=== PATIENT | female | born 1985 | race Caucasian/White ===

== ENCOUNTER → 2018-07-24 09:14 | Outpatient (CLI) | payer OTHER, SELFPAY ==
[2018-07-24 10:19] LABS: Estradiol 67.3 pg/mL; Free T3 2.9 pg/mL (2.18-3.98); Progesterone Level 23.63 ng/mL (See Comment); T4 Free Direct 0.96 ng/dL (0.76-1.46); Thyroid Stim Hormone (TSH) 0.82 uIU/mL (0.358-3.74)
[2018-07-25 11:34] LABS: DHEA Sulfate 254.7 ug/dL (84.8-378.0)
== END ==
PROVIDERS: Family Provider Physician Assistant; PCP Physician Assistant; Referring Provider Specialist; Visit Provider Specialist
DX: E03.8 Other specified hypothyroidism (principal); E28.8 Other ovarian dysfunction
CPT/HCPCS: 36415; 82627; 82670; 84144; 84403; 84439; 84443; 84481; 82626

== ENCOUNTER → 2018-12-07 13:58 | Outpatient (CLI) | payer OTHER, SELFPAY ==
[2018-12-07 15:09] LABS: Progesterone Level 9.22 ng/mL (See Comment)
[2018-12-07 15:13] LABS: Estradiol 171.1 pg/mL; Free T3 2.7 pg/mL (2.18-3.98); T4 Free Direct 1.06 ng/dL (0.76-1.46)
[2018-12-10 11:09] LABS: DHEA Sulfate 240.4 ug/dL (84.8-378.0)
== END ==
PROVIDERS: Family Provider Physician Assistant; PCP Physician Assistant; Referring Provider Specialist; Visit Provider Specialist
DX: E27.9 Disorder of adrenal gland, unspecified (principal); E28.8 Other ovarian dysfunction; E03.8 Other specified hypothyroidism
CPT/HCPCS: 36415; 82627; 82670; 84144; 84403; 84439; 84481; 82626

== ENCOUNTER 2022-11-07 12:00 | Outpatient (RCR) | payer SELFPAY ==
--- NOTE | 2022-10-31 14:02 | HP.PTEVAL_ITS ---
Patient's Visit Information JUAQUIN MCKENZIE is a 37 year old F referred to Physical Therapy by Self Referred with a diagnosis of none...present for vertigo. Date of Evaluation: 10/31/22 Physical Therapist: Lamonte Melendez, KENDY, OCS, CSCS - Visit Plan Frequency: 1x/Week Duration: 4-6 Weeks Plan: weekly as needed to progress vestibular adaptation ex as needed. Monitor positional. refer to doctor if improvements not made. - Subjective Dizzyness. Has had issues over the years. gets dizzy spells maybe once a year for a day. This time it it started two weeks ago on morning and was spinning. Had to stay in bed as things were going around. Head is spinning. Worse that day with moving around. Since then it has gotten some better. Now looking up to hang laundry she might spin, vaccuming the floor may make her spin. Doing ex for discs in back (pressups, situps etc). rolling in bed can cause it for a couple minutes. ...might feel it the whole day being off if it is bad. Yesterday barely noticed it as she did not move much. It keeps her from comfortably and efficiently cleaning and she feels worse. Talked with PT about it. Smita Goff is PCP, in [place] at [facility]. - Objective Walks normal, transfers I and normal. Steps reciprocal without rail. Cervical aROM is full and painfree. UE AROM WFL, reflexes 2/3 bi and tri. - B hallpike sara testing, - roll test, no nyhstagmus or symptoms. Oculomotor: - skew eye deviation and - ocular tilt, slight + L head thrust. no nystagmus with gaze or head shake. Pursuit and saccades are normal. dizzy with head shake but no nystagmus. VOR is symptomatic H 30 sec 3/10 for 15 seconds, V not bad. - Balance/Special Test Scores Functional Gait Assessment Score: 30 % Disability: 0 Dizziness Score: 32 - Goals Goal 1:: abolish vertigo 100% Goal Time Frame: 2-4 Weeks Goal 2:: 4 or less DHI score Goal Time Frame: 2-4 Weeks - Rehabilitation Potential Physical Therapy Diagnosis: Likely unilateral vestibular hypofunction Rehabilitation Potential: Fair - Anticipated Interventions Patient/Client Instruction: Educate patient on: Condition, Plan of Care For the Purpose of:: To increase tolerance to activity/condition/position Comment: adaptation and habituation ex For the Purpose of:: To increase tolerance to activity/condition/position Thank you for the opportunity to evaluate your patient. For Medicare and Medicare HMO plans, please review the plan of care and approve it. It will need to be FAXED BACK to us at [phone] for Medicare purposes. For Medicare only, by signing this I certify the plan of care. Please let me know if there are questions or concerns regarding this plan of care. Physician Signature: Date:
--- NOTE | 2022-11-07 12:24 | HP.PTDCSUM ---
It has been my pleasure to treat JUAQUIN MCKENZIE referred by Self Referred, with the diagnosis of none...present for vertigo for a total of 2 visit(s). Discharge Date: 11/07/22 Please see the following information for a summary of their discharge status. Subjective: Exercising working well. I can vaccuum now without much problem and doing laundry without much problem. Life is pretty normal. Very little dizzyness with ex. Balance still good . % Improvement: 80 Objective/Function: 2/10 dizzyness with 60 second , much better, VOR x 2 30 worse at 3/10 for longer, VOR walking 3/10 longer. VORV walking 2/10 for 10 seconds. Good balance and - positional today. Goal 1:: abolish vertigo 100% Goal Progress: Goal Met Goal 2:: 4 or less DHI score Goal Progress: Progressing Plan: d/c, pt to do HEP and expect continued improvements and to contact doctor if symptoms worsen. If there are questions or concerns regarding this patient's physical therapy, please feel free to call me at [phone]. Thank you for the referral of this patient. Sincerely, Lamonte Melendez, DPT, OCS, CSCS Balance/Gait/Functional tests - Balance/Special Test Scores Functional Gait Assessment Score: 30 % Disability: 0 Dizziness Score: 32
== END 2022-11-07 12:43 | disposition home or self-care (01) ==
LOC: PT 12:00
PROVIDERS: PCP Physician Assistant
DX: R42 Dizziness and giddiness (principal)
CPT/HCPCS: 97161; 97530

== ENCOUNTER 2023-08-19 19:18 | Emergency (ER) | payer OTHER, SELFPAY ==
[2023-08-19 19:19] VITALS: BP 123/96; PULSE 117; RESP 16; TEMP 36.4; O2SAT 100; BMI 35.4
--- NOTE | 2023-08-19 19:31 | EX.ED.UPPERE ---
HPI History of Present Illness HPI Narrative: 38-year-old female fell getting out of an [facility] buggy injuring her left wrist. Denies other injuries. Dominant. Chief Complaint: Upper Extremity Injury Informant: patient Occured/Mechanism Mechanism/Context: Yes injury and Yes blunt trauma Onset/Context/Timing Onset: Today and Hours Context: Sudden Onset Timing: Continuous Quality of Pain: Sharp and Stabbing Current Severity: Moderate Maximum Severity: Severe Associated Symptoms Associated Symptoms: Negative for Parasthesia, Weakness or Loss of Funtion Narrative Narrative: 38-year-old [facility] female past medical history of hypothyroidism. Fell getting out of the buggy and when she went to catch her so she injured her left wrist. She is right-hand dominant. No prior injury or surgery to the left wrist. Denies any other injuries. Prior similar symptoms: No Recent Illness/Hospitalization: No PFSH PFSH Medical History no medical history Home Medications Cetirizine Hcl [Zyrtec] 10 mg PO DAILY 12/21/15 [History Last Taken 12/20/15] calcium carbonate 500 mg calcium (1,250 mg) chewable tablet 500 mg PO 12/21/15 [History Last Taken 12/20/15] vits,calcium no.78-iron fumarate-folic acid 29 mg-1 mg tablet (Prenatabs FA) 1 tab PO DAILY 12/21/15 [History Last Taken 12/20/15] docusate sodium 100 mg capsule (DOK) 100 mg PO BID PRN PRN Constipation ##30 12/22/15 [Rx Last Taken Unknown] ibuprofen 600 mg tablet 600 mg PO Q8H PRN PRN Mild-Mod Pain (1-5/10) ##30 12/22/15 [Rx Last Taken Unknown] oxycodone 5 mg tablet 5 mg PO Q4H PRN PRN Mod-Severe Pain (4-10/10) #30 tabs 12/22/15 [Rx Last Taken Unknown] hydrocodone-acetaminophen 5-325mg 5mg-325mg 1 tab PO Q4H PRN PRN Pain 4 days #20 TABLETS 08/19/23 [Rx Last Taken Unknown] Allergy/AdvReac Type Severity Reaction Status Date / Time No Known Allergies Allergy Verified 08/19/23 19:19 Family History no significant family his Surgical History no surgical history Social History Smoking Status: Never smoker ROS ROS ED ROS Narrative Denies recent illness. Review of Systems ROS Unobtainable: Denies due to encephalopathy Constitutional Constitutional ED: Denies chills or fever(s) Eyes Eyes: Denies blurry vision ENT ENT ED: Denies ear pain Cardiovascular Cardiovascular: Denies chest pain Respiratory/Chest Respiratory/Chest: Denies cough or dyspnea Gastrointestinal Gastrointestinal: Denies abdominal pain Genitourinary Genitourinary ED: Denies dysuria or hematuria Musculoskeletal Musculoskeletal: Denies back pain Integumentary Denies abscess Neurologic Neurologic: Denies headache(s) Psychiatric Psychiatric: Denies anxiety Endocrine Endocrinology: Denies cold intolerance Hematologic/Lymphatic Hematologic/Lymphatic: Denies easy bleeding or easy bruising Allergic/Immunologic Allergic/Immunologic ED: Denies mouth swelling or tongue swelling EXAM Physical Exam Narrative Exam Narrative: Well-appearing 38-year-old female. Vital signs are stable afebrile. H EENT exam unremarkable atraumatic nontender. No signs of trauma to her face or scalp. No hematomas. C-spine and trachea nontender. Lungs Lear to auscultation. Heart regular rhythm rate about 1005 no murmur. Chest wall and ribs nontender. Abdomen soft nontender. Back nontender. Left wrist is deformed, tender and swollen. Left hand is neurovascular intact. Skins intact. Left elbow humerus and shoulder are nontender. Right upper both lower extremities are nontender without deformity. Neurologically she is awake and alert. No focal motor deficits. Const Vital Signs: 08/19/23 19:19 Temperature 97.5 F L Temperature Source Temporal Pulse Rate 117 H Respiratory Rate 16 Blood Pressure 123/96 H Blood Pressure Mean 105 Pulse Ox 100 Oxygen Delivery Method Room Air Positive well nourished and well developed; Negative for cachectic or contractures General Appearance ED: well developed and NAD; Negative for cachectic, contractures, cyanotic or diaphoretic Nutritional Appearance: Negative for cachectic HEENT Reports moist mucous membranes normocephalic and atraumatic; Negative for trauma or tenderness Eyes PERRL and EOMs intact bilaterally Neck full ROM and supple General: Negative for tenderness Lymph Lymphatic: Negative for other Chest Wall inspection of chest normal and palpation of chest normal Chest: Negative for other Resp normal respiratory effort and clear to auscultation bilaterally Effort and Inspection: Negative for pain with movement Auscultation: Negative for rales, rhonchi or wheezes Cardio regular rhythm, S1 normal heart sound, S2 normal heart sound and no murmurs; Negative for regular rate Rate: tachycardic; Negative for bradycardia GI non-tender, non-distended and no masses Inspection: Negative for abdominal distention Auscultation: normoactive bowel sounds Palpation: soft; Negative for tender or guarding Back/Spine no CVA tenderness General Back: Negative for CVA tenderness Cervical Spine: Negative for cervical spine tenderness Thoracic Spine / Upper Back: Negative for thoracic spinal tenderness Lumbar Spine / Lower Back: Negative for lumbar spinal tenderness Extremity normal to inspection and full ROM Extremity Narrative: Except left wrist tender, swollen, deformed. Left hand neurovascular intact. Skin intact. Neuro oriented x3, CN's II-XII intact bilaterally, moves all extremities, no focal motor deficits and no sensory deficits noted Sensorium / Orientation: alert, oriented to person, oriented to place and oriented to time; Negative for orientation impaired, lethargic or stuporous Motor Exam: strength 5/5 throughout Psych mental status grossly normal Attitude: No agitated Mood & Affect: Negative for depressed, anxious or tearful Skin General Skin Exam: Negative for petechiae Lesions: no lesions Rashes: no rashes Trauma: no lacerations or abrasions; Negative for abrasion or laceration MDM MDM MDM Narrative Medical decision making narrative: 38-year-old female fell getting out of a buggy suspected left wrist fracture. X-ray being obtained. Treated with IV morphine and Zofran. Received fentanyl prior to arrival by the squad. Post procedural sedation and reduction the x-ray is much improved with much better alignment of the comminuted distal radius fracture. Patient is an AP splint. She will be placed in a sling. She will be discharged home to be given a note dose of morphine and [place] for home. Follow-up with orthopedics on Monday. History & Record Review Discussion w/independent historian: Patient and Family Radiography Diagnostic Testing: Left wrist x-ray, 3 views, interpreted by myself shows comminuted interarticular fracture of the distal radius and a ulnar styloid fracture. Left wrist x-ray, 2 views, postreduction shows significant improvement of the alignment. X-rays were discussed with the patient. Interpreted by myself. Patient is aware that after orthopedic evaluation she may need surgical repair. Procedures Upper Extremity Splints Upper Extremity Splint: Orthoglass, Sling and - (Wrist closed fracture. Postreduction. Short arm AP splint. Ortho-Glass. Well-padded.) Splint Fabrication: Fabricated Location: Left Procedural Sedation 15 min: Consent Signed: Yes Any Problems With Anesthesia: No You/Your family experience fever (hyperthermia) w/anesthesia: Yes Relationship: cousin Sedation medication: Propofol Dose: 140 Route: IV Total Moderate Sedation Units: 15 Maliampati Score: Class II ASA Classification: I Comment:: left wrist closed fracture. Procedural sedation. Patient had a family member with reaction anesthesia but it was not the propofol. Reduced. Placed a short arm well-padded AP Ortho-Glass splint. Patient tolerated procedure well. Vital signs stable stable the entire time. Discharge Plan Triage Chief Complaint: Upper Extremity Injury ED Provider: Elio Roach Dx/Rx/DC Orders Clinical Impression: Left wrist fracture, Fall Instructions: ED Fracture, Wrist, General Prescriptions: New hydrocodone-acetaminophen 5-325 mg tablet 1 tab PO Q4H PRN PRN (Reason: Pain) 4 Days Qty: 20 0RF No Action calcium carbonate 500 MG tablet,chewable 500 mg PO [id number] [Prenatabs FA] 1 TABLET tablet 1 tab PO DAILY Cetirizine Hcl [Zyrtec] 10 MG tablet 10 mg PO DAILY oxycodone 5 MG tablet 5 mg PO Q4H PRN PRN (Reason: Mod-Severe Pain (4-10/10)) Qty: 30 0RF ibuprofen 600 MG tablet 600 mg PO Q8H PRN PRN (Reason: Mild-Mod Pain (1-5/10)) Qty: 30 0RF docusate sodium [DOK] 100 MG capsule 100 mg PO BID PRN PRN (Reason: Constipation) Qty: 30 0RF Primary Care Provider: Smita Goff Referrals: Kurtis Horton DO [Med Staff - Active Staff] - As soon as possible Smita Goff PA [Primary Care Provider] - Activity Restrictions/Additional Instructions: Keep splint dry and clean. Ice and elevate the next 2 days. This will decrease pain and swelling. [place] for pain. You may also take ibuprofen or Motrin with a decrease pain and swelling. Call the orthopedic doctors office on Monday. That is Dr. Kurtis Nguyen. They will get an appointment to be seen early this week. The fracture of your left wrist may need surgical repair. Disposition Disposition: Home, Self Care
[2023-08-19] MEDS: Ondansetron 4 MG/2 ML Vial IV (19:37)
[2023-08-19] MEDS: morphine 8 MG/ML Syringe 6 MG IV ×2 (19:37→21:33)
--- NOTE | 2023-08-19 19:42 | RAD_ITS ---
INDICATION: trauma EXAMINATION/TECHNIQUE: X-RAY - LEFT XR Wrist Min 3 View, 3 VIEWS COMPARISON: None. FINDINGS: Comminuted fracture distal radius with intra-articular extension. Ulnar styloid fracture. Scaphoid bone grossly intact. Degenerative change at triscaphe and base of thumb. Proximal metacarpals show no obvious abnormality. RAD/Wrist min 3 Views IMPRESSION: Comminuted impacted distal radial fracture, and ulnar styloid fracture. Electronically Signed: Jak Armenta MD at 20:06 EDT ,
[2023-08-19 20:15] VITALS: BP 134/82; PULSE 85; RESP 16; O2SAT 99
[2023-08-19 20:25] VITALS: BP 123/79; O2SAT 98
--- NOTE | 2023-08-19 20:25 | RAD_ITS ---
INDICATION: post fracture reduction EXAMINATION/TECHNIQUE: X-RAY - LEFT XR Wrist 2 Views 2 VIEWS COMPARISON: 7:40 PM today. RAD/Wrist 2 Views IMPRESSION: Comminuted distal radial fracture and ulnar styloid fracture. Alignment improved status post external reduction of fracture fragments. Minimal apex volar angulation on lateral view is probably stable. Electronically Signed: Jak Armenta MD at 20:38 EDT ,
[2023-08-19 20:30] VITALS: BP 112/62; BP 116/76; BP 134/82; PULSE 85; RESP 16; RESP 31; O2SAT 100; O2SAT 99
[2023-08-19 20:35] VITALS: BP 130/77; O2SAT 99
[2023-08-19] MEDS: Propofol 200 MG/20 ML Vial 140 MG IV BOLUS (20:41)
[2023-08-19 21:39] VITALS: BP 118/67; PULSE 91; RESP 18; O2SAT 99
== END 2023-08-19 22:28 | disposition home or self-care (01) ==
PROVIDERS: Emergency Provider Emergency Medicine; PCP Physician Assistant; Visit Provider Emergency Medicine
DX: S52.352A Displaced comminuted fracture of shaft of radius, left arm, initial encounter for closed fracture (principal); W17.89XA Other fall from one level to another, initial encounter
CPT/HCPCS: 25680; 73100; 73110; 96374; 96375; 96376; 99284; A4216; J2405